=== PATIENT | female | born 1975 | race Hispanic/Latino ===

== ENCOUNTER 2017-02-12 15:00 | Observation (INO) | payer BC ==
[~2017-02-12] VITALS: Ht 161.3 cm; Wt 68.0 kg
[2017-02-12 17:30] VITALS: BP 112/60
[2017-02-12 18:10] LABS: BASOPHILS % (AUTO) 0.3 % (0.0-5.0); EOSINOPHILS % (AUTO) 0.9 % (0.0-8.0); HEMATOCRIT 35.4 % (36-48); MEAN CORPUSCULAR HEMOGLOBIN 29.1 pg (27.0-33.0); MEAN CORPUSCULAR VOLUME 85.7 fL (79-99); MONOCYTES % (AUTO) 6.9 % (3.0-13.0); NEUTROPHILS % (AUTO) 60.9 % (40.0-77.0); PLATELET COUNT (AUTO) 499 K/uL (130-400); RED BLOOD CELL COUNT(AUTO) 4.13 MIL/uL (4.00-5.50); RED CELL DISTRIBUTION WIDTH 12.7 % (11.0-15.5); WHITE BLOOD COUNT (AUTO) 7.2 K/uL (4.8-10.8)
[2017-02-12] MEDS ORDERED: IRON PO (18:19)
[2017-02-13] VITALS (22 sets, daily range): BP systolic 103–149; BP diastolic 56–84
[2017-02-13] MEDS ORDERED: LACTATED RINGERS 1000ML 1,000 ML IV SCH (06:00)
[2017-02-13] MEDS: CEFAZOLIN SODIUM 1 GM VIAL IVP SCH ×2 (08:00→08:22)
[2017-02-13] MEDS ORDERED: WATER FOR INJECTION,STERILE 20 ML VIAL ONE (08:15)
[2017-02-13] MEDS ORDERED: LIDOCAINE PF 2% 5ML ABBOJECT ONE (08:18)
[2017-02-13] MEDS ORDERED: ONDANSETRON HCL 4 MG/2 ML VIAL ONE (08:18)
[2017-02-13] MEDS ORDERED: GLYCOPYRROLATE 0.2 MG/ML 5 ML VIAL ONE (08:18)
[2017-02-13] MEDS ORDERED: FENTANYL CITRATE PF 50 MCG/1 ML 2ML VIAL ONE ×2 (08:19→08:52)
[2017-02-13] MEDS ORDERED: SUCCINYLCHOLINE 200MG/10ML SYR ONE (08:19)
[2017-02-13] MEDS ORDERED: NEOSTIGMINE METHYLSULFATE 1MG/ML IV ONE (08:19)
[2017-02-13] MEDS ORDERED: PROPOFOL 10 MG/ML 20ML VIAL IV ONE (08:19)
[2017-02-13] MEDS ORDERED: DEXAMETHASONE SOD PHOSPHATE 10MG/ML 1ML VIAL ONE (08:19)
[2017-02-13] MEDS ORDERED: MIDAZOLAM HCL 1 MG/ML 2ML VIAL ONE (08:19)
[2017-02-13] MEDS ORDERED: EPHEDRINE SULFATE 50 MG/ML AMPULE ONE (08:38)
[2017-02-13] MEDS ORDERED: OCTYL 2-CYANOACRYLATE 1 EACH TP ONE (10:04)
[2017-02-13] MEDS ORDERED: MEPERIDINE-PF 25 MG/ML SYG ONE ×2 (10:46→10:58)
[2017-02-13] MEDS ORDERED: PROMETHAZINE HCL 25 MG/ML 1ML AMPULE IM ONE (10:57)
[2017-02-13] MEDS ORDERED: PROMETHAZINE HCL 25 MG/ML 1ML AMPULE IM PRN (12:00)
[2017-02-13] MEDS ORDERED: BISACODYL 10 MG SUPP.RECT RC PRN (12:00)
[2017-02-13] MEDS: DEXTROSE 5 %-0.45 % NACL 1,000 ML IV PRN ×2 (12:20→20:28)
[2017-02-13] MEDS: PROMETHAZINE HCL 25 MG/ML 1ML AMPULE IM PRN ×2 (12:22→16:42)
[2017-02-13] MEDS: MEPERIDINE-PF 75 MG/ML SYG IM PRN ×2 (12:22→16:43)
[2017-02-13] MEDS: DOCUSATE SODIUM 100 MG CAP PO PRN (21:41)
[2017-02-13] MEDS: SIMETHICONE 80 MG TAB.CHEW PO PRN (21:41)
[2017-02-13] MEDS: ACETAMINOPHEN-CODEINE 300/30MG TAB PO PRN (21:45)
[2017-02-14 04:02] VITALS: BP 111/65
[2017-02-14] MEDS: DEXTROSE 5 %-0.45 % NACL 1,000 ML IV PRN (04:02)
[2017-02-14] MEDS: IBUPROFEN 600 MG TABLET PO PRN ×2 (04:17→20:01)
[2017-02-14 06:09] LABS: HEMATOCRIT 34.2 % (36-48); MEAN CORPUSCULAR HEMOGLOBIN 29.3 pg (27.0-33.0); MEAN CORPUSCULAR HGB CONC 34.2 g/dL (32.0-36.0); MEAN CORPUSCULAR VOLUME 85.7 fL (79-99); PLATELET COUNT (AUTO) 455 K/uL (130-400); RED BLOOD CELL COUNT(AUTO) 3.99 MIL/uL (4.00-5.50); RED CELL DISTRIBUTION WIDTH 12.6 % (11.0-15.5)
[2017-02-14 07:35] VITALS: BP 116/60
[2017-02-14] MEDS: ACETAMINOPHEN-CODEINE 300/30MG TAB PO PRN (08:55)
[2017-02-14] MEDS: SIMETHICONE 80 MG TAB.CHEW PO PRN ×2 (08:55→20:58)
[2017-02-14] MEDS: DOCUSATE SODIUM 100 MG CAP PO PRN ×2 (08:55→20:58)
[2017-02-14 12:10] VITALS: BP 104/66
[2017-02-14 16:22] VITALS: BP 100/48
[2017-02-14 19:47] VITALS: BP 119/71
[2017-02-14 23:06] VITALS: BP 133/67
[2017-02-15 03:08] VITALS: BP 125/67
[2017-02-15 07:49] VITALS: BP 124/65
[2017-02-15] MEDS: IBUPROFEN 600 MG TABLET PO PRN (09:56)
[2017-02-15] MEDS: DOCUSATE SODIUM 100 MG CAP PO PRN (09:56)
[2017-02-15] MEDS: SIMETHICONE 80 MG TAB.CHEW PO PRN (09:57)
[2017-02-15 11:35] VITALS: BP 118/64
== END 2017-02-15 13:35 | disposition home or self-care (01) ==
LOC: EDSTATUS 15:00 → DAHIP 02-13 06:04 → WSH 02-13 11:45 → EDSTATUS 02-13 15:00
PROVIDERS: ADMIT Obstetrics & Gynecology; ATTEND Obstetrics & Gynecology
DX: N81.3 Complete uterovaginal prolapse (principal); N81.89 Other female genital prolapse; N39.3 Stress incontinence (female) (male); Z90.710 Acquired absence of both cervix and uterus
CPT/HCPCS: 36415 ×2; 57288; 58262; 84703; 85025; 85027; 86850; 86900; 86901; 88302; 88307; 93005; 96372 ×2; A4314; A4351; A4354; A4510; A4600; A4606; A4930; C1771; G0378 ×57; J0330; J0690; J1100; J2001; J2175 ×4; J2250; J2405; J2550 ×3; J2704; J2710; J3010 ×2; J3490 ×2; J7120 ×2